=== PATIENT | male | born 1945 | race African-American/Black ===

== ENCOUNTER 2020-12-12 19:40 | Inpatient (IN) | payer OTHER ==
[~2020-12-12] VITALS: Ht 180.3 cm; Wt 102.1 kg
[2020-12-12 20:31] LABS: BG BASE EXCESS -2.3 mmol/L (-2.0-2.0); BG CARBOXYHEMOGLOBIN 0.8 % (0.5-1.5); BG DEOXYHEMOGLOBIN 3.3 % (0.0-5.0); BG FRACTION INSPIRED OXYGEN 32; BG HCO3 ACT 22.5 mmol/L (22.0-26.0); BG METHEMOGLOBIN 0.3 % (0.0-1.5); BG OXYGEN SATURATION 96.7 % (92.0-98.5); BG OXYHEMOGLOBIN 95.6 % (94.0-97.0); BG PCO2 38.9 mmHg (35.0-45.0); BG PH 7.381 (7.350-7.450); BG PO2 94.7 mmHg (75.0-100.0); BG SAMPLE SITE RIGHT RADIAL; BG TOTAL HEMOGLOBIN 7.1 g/dL (12.0-18.0); BG VENT MODE NASAL CANNULA
[2020-12-12 20:47] LABS: BASOPHILS % 1.3 % (0.0-2.0); HEMATOCRIT. 22.3 % (42.0-52.0); LYMPHOCYTES % 15.9 % (20.0-50.0); MEAN CORPUSCULAR HEMOGLOBIN 20.6 pg (28.0-32.0); MEAN CORPUSCULAR VOLUME 68.3 fL (80.0-94.0); MEAN PLATELET VOLUME 8.9 fl (7.4-10.4); MONOCYTES % 10.9 % (2.0-8.0); NEUTROPHILS % 68.9 % (40.0-76.0); PLATELET 250 x1000/uL (130-400); RED BLOOD CELL COUNT 3.26 mill/uL (4.7-6.1); RED CELL DISTRIBUTION WIDTH 17.8 % (11.6-14.6)
[2020-12-12 20:49] LABS: CHLORIDE 109 mEq/L (98-107)
[2020-12-12 20:52] LABS: HEMOGLOBIN. 6.7 g/dL (14.0-18.0)
[2020-12-12 20:55] LABS: INR 1.1
[2020-12-12] MEDS ORDERED: ASPIRIN 81MG TABLET PO ONE (21:00)
[2020-12-12] MEDS ORDERED: FUROSEMIDE 40MG/4ML VIAL IVP ONE (21:00)
[2020-12-12 21:45] LABS: PLATELET ESTIMATE NORMAL
[2020-12-12] MEDS ORDERED: ONDANSETRON HCL 4MG/2ML INJ IV PRN (23:30)
[2020-12-12] MEDS ORDERED: MORPHINE SULFATE 2 MG/ML CPJ (NOT FOR IM USE) IV PRN (23:30)
[2020-12-12] MEDS ORDERED: IPRATROPIUM/ALBUTEROL 0.5-3(2.5)MG/3ML NEB HHN PRN (23:30)
[2020-12-12] MEDS ORDERED: MAGNESIUM/ALUMINUM HYDROXIDE/SIMETHICONE 30ML UDC PO PRN (23:30)
[2020-12-12] MEDS ORDERED: ACETAMINOPHEN 325MG TABLET PO PRN (23:30)
[2020-12-12] MEDS ORDERED: LORAZEPAM 2MG/ML CPJ IV PRN (23:30)
[2020-12-12] MEDS ORDERED: GUAIFENESIN 200MG/10ML SUGAR FREE UDC PO PRN (23:30)
[2020-12-12] MEDS ORDERED: HYDROCODONE/ACETAMINOPHEN 5/325MG TABLET PO PRN (23:30)
[2020-12-12] MEDS ORDERED: DIPHENHYDRAMINE 50MG/ML VIAL IV PRN (23:30)
[2020-12-13] VITALS (9 sets, daily range): BP systolic 141–181; BP diastolic 40–70
[2020-12-13] MEDS: CLONIDINE 0.1MG TABLET PO PRN ×2 (02:37→09:39)
[2020-12-13] MEDS: SODIUM CHLORIDE 0.9% INJ 3ML FLUSH IVF SCH ×2 (05:14→14:54)
[2020-12-13 05:34] LABS: BASOPHILS % 0.6 % (0.0-2.0); EOSINOPHILS % 1.4 % (0.0-5.0); LYMPHOCYTES % 16.3 % (20.0-50.0); MEAN CORPUSCULAR HEMOGLOBIN 19.7 pg (28.0-32.0); MEAN CORPUSCULAR VOLUME 66.2 fL (80.0-94.0); MEAN PLATELET VOLUME 7.8 fl (7.4-10.4); NEUTROPHILS % 70.7 % (40.0-76.0); PLATELET 190 x1000/uL (130-400); RED BLOOD CELL COUNT 2.95 mill/uL (4.7-6.1); RED CELL DISTRIBUTION WIDTH 17.8 % (11.6-14.6)
[2020-12-13 05:35] LABS: CHLORIDE 109 mEq/L (98-107)
[2020-12-13 05:50] LABS: HEMATOCRIT. 19.6 % (42.0-52.0); HEMOGLOBIN. 5.8 g/dL (14.0-18.0)
[2020-12-13] MEDS ORDERED: PNEUMOCOCCAL 23-VAL P-SAC VAC 0.5 ML IM ONE (10:15)
[2020-12-13] MEDS ORDERED: INFLUENZA VACCINE 05/PF 0.5 ML VIAL IM ONE (10:15)
[2020-12-13] MEDS ORDERED: ASPI-986 MT (11:09)
[2020-12-13 13:57] LABS: HEMATOCRIT 23.3 % (42.0-52.0)
[2020-12-13 14:05] LABS: TOTAL IRON BINDING CAPACITY 264 ug/dL (250-450)
[2020-12-13 14:15] LABS: HEMOGLOBIN 6.9 g/dL (14.0-18.0)
[2020-12-13 14:22] LABS: FOLIC ACID (FOLATE) SERUM 18.2 ng/mL (>5.38)
[2020-12-13 17:09] LABS: HEPATITIS B SURFACE ANTIGEN NEGATIVE
[2020-12-13 17:39] LABS: HEPATITIS A AB IGM NEGATIVE (NEGATIVE)
[2020-12-13 18:31] LABS: INR 1.1; PROTHROMBIN TIME 11.8 sec (9.6-11.0)
[2020-12-13 22:08] LABS: CLARITY URINE CLEAR (CLEAR); COLOR URINE YELLOW (YELLOW); KETONES URINE NEGATIVE (NEGATIVE); LEUKOCYTE ESTERASE URINE NEGATIVE (NEGATIVE); NITRITE URINE NEGATIVE (NEGATIVE); OCCULT BLOOD URINE NEGATIVE (NEGATIVE); PH URINE 7.5 (4.5-8.0); PROTEIN URINE 3+ (NEGATIVE)
[2020-12-13] MEDS ORDERED: DEXTROSE 50% WATER 50ML SYRINGE IV PRN (22:15)
[2020-12-14] VITALS (11 sets, daily range): BP systolic 137–177; BP diastolic 38–86
[2020-12-14 01:04] LABS: BASOPHILS % 0.4 % (0.0-2.0); EOSINOPHILS % 2.1 % (0.0-5.0); HEMATOCRIT. 22.8 % (42.0-52.0); LYMPHOCYTES % 7.3 % (20.0-50.0); MEAN CORPUSCULAR HEMOGLOBIN 20.4 pg (28.0-32.0); MEAN CORPUSCULAR VOLUME 68.1 fL (80.0-94.0); MEAN PLATELET VOLUME 8.5 fl (7.4-10.4); MONOCYTES % 10.2 % (2.0-8.0); PLATELET 219 x1000/uL (130-400); RED BLOOD CELL COUNT 3.35 mill/uL (4.7-6.1); RED CELL DISTRIBUTION WIDTH 18.8 % (11.6-14.6)
[2020-12-14 01:13] LABS: HEMOGLOBIN. 6.8 g/dL (14.0-18.0)
[2020-12-14] MEDS: INSULIN LISPRO 100 UNITS/ML SUBCUT SCH ×4 (06:28→20:19)
[2020-12-14] MEDS: BLOOD SUGAR DIAGNOSTIC STRIP TEST SCH ×4 (07:10→20:19)
[2020-12-14 08:02] LABS: CHLORIDE 110 mEq/L (98-107)
[2020-12-14 08:26] LABS: BASOPHILS % 0.8 % (0.0-2.0); EOSINOPHILS % 2.2 % (0.0-5.0); HEMOGLOBIN. 8.2 g/dL (14.0-18.0); LYMPHOCYTES % 11.1 % (20.0-50.0); MEAN CORPUSCULAR VOLUME 72.7 fL (80.0-94.0); MEAN PLATELET VOLUME 9.1 fl (7.4-10.4); MONOCYTES % 10.2 % (2.0-8.0); NEUTROPHILS % 75.7 % (40.0-76.0); PLATELET 242 x1000/uL (130-400); RED BLOOD CELL COUNT 3.71 mill/uL (4.7-6.1); RED CELL DISTRIBUTION WIDTH 21.1 % (11.6-14.6)
[2020-12-14] MEDS: IRON SUCROSE COMPLEX 100 MG/5 ML ML IV SCH (15:41)
[2020-12-14] MEDS: HYDRALAZINE 20MG/ML VIAL IV PRN (16:50)
[2020-12-14] MEDS: SODIUM CHLORIDE 0.9% INJ 3ML FLUSH IVF SCH ×2 (20:18→20:19)
[2020-12-15] VITALS: BP 164/59
[2020-12-15 04:00] VITALS: BP 164/47
[2020-12-15] MEDS: CLONIDINE 0.1MG TABLET PO PRN ×2 (06:12→12:09)
[2020-12-15] MEDS: SODIUM CHLORIDE 0.9% INJ 3ML FLUSH IVF SCH ×3 (06:12→21:05)
[2020-12-15] MEDS: INSULIN LISPRO 100 UNITS/ML SUBCUT SCH ×4 (06:16→21:00)
[2020-12-15] MEDS: BLOOD SUGAR DIAGNOSTIC STRIP TEST SCH ×4 (06:16→21:00)
[2020-12-15] MEDS: IRON SUCROSE COMPLEX 100 MG/5 ML ML IV SCH (09:42)
[2020-12-15 12:00] VITALS: BP 177/64
[2020-12-15 20:00] VITALS: BP 125/62
[2020-12-16] VITALS: BP 193/71
[2020-12-16] MEDS: CLONIDINE 0.1MG TABLET PO PRN ×2 (00:57→10:15)
[2020-12-16 02:00] VITALS: BP 163/57
[2020-12-16 04:00] VITALS: BP 153/57
[2020-12-16] MEDS: SODIUM CHLORIDE 0.9% INJ 3ML FLUSH IVF SCH ×3 (05:43→22:20)
[2020-12-16] MEDS: BLOOD SUGAR DIAGNOSTIC STRIP TEST SCH ×4 (05:43→21:00)
[2020-12-16] MEDS: INSULIN LISPRO 100 UNITS/ML SUBCUT SCH ×4 (05:46→21:00)
[2020-12-16 08:30] VITALS: BP 167/67
[2020-12-16] MEDS: IRON SUCROSE COMPLEX 100 MG/5 ML ML IV SCH (10:09)
[2020-12-16] MEDS: LOSARTAN POTASSIUM 25 MG TABLET PO SCH (13:21)
[2020-12-16] MEDS: BISACODYL 5MG TABLET PO NR ×2 (15:00→19:19)
[2020-12-16] MEDS ORDERED: SORBITOL 70% SOLN 30ML PO NR ×2 (15:00→19:00)
[2020-12-16 15:53] LABS: BASOPHILS % 0.9 % (0.0-2.0); EOSINOPHILS % 4.1 % (0.0-5.0); HEMATOCRIT. 26.3 % (42.0-52.0); LYMPHOCYTES % 10.7 % (20.0-50.0); MEAN CORPUSCULAR HEMOGLOBIN 21.7 pg (28.0-32.0); MEAN CORPUSCULAR VOLUME 71.6 fL (80.0-94.0); MEAN PLATELET VOLUME 8.7 fl (7.4-10.4); MONOCYTES % 11.2 % (2.0-8.0); NEUTROPHILS % 73.1 % (40.0-76.0); PLATELET 238 x1000/uL (130-400); RED BLOOD CELL COUNT 3.67 mill/uL (4.7-6.1); RED CELL DISTRIBUTION WIDTH 21.3 % (11.6-14.6)
[2020-12-16] MEDS: DOCUSATE SODIUM 100MG CAPSULE PO PRN ×4 (17:01→17:10)
[2020-12-16 20:00] VITALS: BP 162/59
[2020-12-16] MEDS: PANTOPRAZOLE SODIUM 40 MG/VIAL IV SCH (21:46)
[2020-12-17] VITALS: BP 140/61
[2020-12-17 05:00] VITALS: BP 160/60
[2020-12-17] MEDS: BLOOD SUGAR DIAGNOSTIC STRIP TEST SCH ×2 (05:18→12:18)
[2020-12-17] MEDS: SODIUM CHLORIDE 0.9% INJ 3ML FLUSH IVF SCH ×2 (05:34→13:14)
[2020-12-17] MEDS: INSULIN LISPRO 100 UNITS/ML SUBCUT SCH ×2 (05:36→12:18)
[2020-12-17 06:19] LABS: INR 1.1; PROTHROMBIN TIME 11.7 sec (9.6-11.0)
[2020-12-17 06:21] LABS: BASOPHILS % 0.8 % (0.0-2.0); EOSINOPHILS % 3.6 % (0.0-5.0); HEMATOCRIT. 29.3 % (42.0-52.0); HEMOGLOBIN. 8.9 g/dL (14.0-18.0); LYMPHOCYTES % 11.4 % (20.0-50.0); MEAN CORPUSCULAR HEMOGLOBIN 21.8 pg (28.0-32.0); MEAN CORPUSCULAR VOLUME 72.2 fL (80.0-94.0); MEAN PLATELET VOLUME 8.7 fl (7.4-10.4); MONOCYTES % 10.6 % (2.0-8.0); NEUTROPHILS % 73.6 % (40.0-76.0); PLATELET 264 x1000/uL (130-400); RED BLOOD CELL COUNT 4.05 mill/uL (4.7-6.1); RED CELL DISTRIBUTION WIDTH 21.4 % (11.6-14.6)
[2020-12-17 08:00] VITALS: BP 176/73
[2020-12-17] MEDS: IRON SUCROSE COMPLEX 100 MG/5 ML ML IV SCH (08:02)
[2020-12-17] MEDS: PANTOPRAZOLE SODIUM 40 MG/VIAL IV SCH (08:02)
[2020-12-17] MEDS: HYDRALAZINE 20MG/ML VIAL IV PRN (08:03)
[2020-12-17] MEDS: LOSARTAN POTASSIUM 25 MG TABLET PO SCH (08:03)
[2020-12-17 10:09] LABS: ANTI-NUCLEAR ANTIBODIES DIRECT Negative (Negative)
[2020-12-17] MEDS: CLONIDINE 0.1MG TABLET PO PRN (10:28)
[2020-12-17 12:00] VITALS: BP 178/62
[2020-12-17] MEDS ORDERED: LOSARTAN POTASSIUM 50 MG TABLET PO SCH (13:00)
[2020-12-17 13:23] VITALS: BP 178/68
[2020-12-17 15:58] VITALS: BP 107/59
[2020-12-18] MEDS ORDERED: LOSARTAN POTASSIUM 50 MG TABLET PO SCH (09:00)
== END 2020-12-17 16:45 | disposition short-term general hospital (02) | DRG 811 ==
LOC: ER 19:40 → EDBD 19:40 → 7WST 23:05 → EDBEDREQTM 23:08 → EDBEDREQ 23:08 → ENRESERV 12-13 08:29 → 8WST 12-14 02:28
PROVIDERS: ADMIT Internal Medicine; ATTEND Internal Medicine
PROC: 30233N1 Transfusion of Nonautologous Red Blood Cells into Peripheral Vein, Percutaneous Approach (ICD-10-PCS; principal; 2020-12-13)
DX: D50.9 Iron deficiency anemia, unspecified (principal); J96.00 Acute respiratory failure, unspecified whether with hypoxia or hypercapnia; E43 Unspecified severe protein-calorie malnutrition; J18.9 Pneumonia, unspecified organism; N17.0 Acute kidney failure with tubular necrosis; I13.0 Hypertensive heart and chronic kidney disease with heart failure and stage 1 through stage 4 chronic kidney disease, or unspecified chronic kidney disease; K92.1 Melena; E11.65 Type 2 diabetes mellitus with hyperglycemia; N18.9 Chronic kidney disease, unspecified; E11.22 Type 2 diabetes mellitus with diabetic chronic kidney disease; Z20.822 Contact with and (suspected) exposure to COVID-19; K82.4 Cholesterolosis of gallbladder; M85.80 Other specified disorders of bone density and structure, unspecified site; R74.01 Elevation of levels of liver transaminase levels; I50.9 Heart failure, unspecified; E78.5 Hyperlipidemia, unspecified; E78.00 Pure hypercholesterolemia, unspecified; Z87.891 Personal history of nicotine dependence; Z79.4 Long term (current) use of insulin; Z68.31 Body mass index [BMI] 31.0-31.9, adult
CPT/HCPCS: 36415; 36600; 71045; 76700; 80048; 80053; 80061; 80076; 81003; 82270; 82375; 82570; 82607; 82728; 82746; 82805; 82962; 83036; 83540; 83550; 83880; 84156; 84443; 84484; 85014; 85018; 85025; 85049; 85384; 86038; 86160; 86705; 86709; 86803; 86850; 86900; 86920; 87340; 87426; 90686; 90732; 93005; 93970; 99285; C9113; J0360; J1815; J1940; J7040; P9016; U0003